=== PATIENT | female | born 1985 | race African-American/Black ===

== ENCOUNTER 2016-09-26 06:51 | Emergency (ER) | payer OTHER ==
[~2016-09-26] VITALS: Ht 172.7 cm; Wt 95.5 kg
[~2016-09-26 06:51] MED LIST: CEPHALEXIN500 M1 PO; MOTRIN 600600 MG/TAB PO; PERCOCET 325 MG1 TA2 PO; PRENATAL1 TA1 PO; RT ADVAIR HFA 2312 G IH; SINGULAIR 110 MG/TAB PO; XOPENEX HF0.045 MG/A IH; ZYRTEC 10MG10 MG PO
[2016-09-26] MEDS ORDERED: AMOXICILLIN 50500 MG PO (06:56)
[2016-09-26] MEDS ORDERED: SINGULAIR 110 MG/TAB PO (06:56)
[2016-09-26 07:24] LABS: BASO % 0.3 % (0.0-2.0); EOS # 0.1 (0.0-0.7); EOS % 0.6 % (0-4.0); GRAN # 9.3 (1.4-6.5); GRAN % 79.8 % (42.2-75.2); HEMATOCRIT 38.3 % (37.0-47.0); HEMOGLOBIN 12.8 g/dl (12.5-16.0); LYMPH # 1.1 (1.2-3.4); LYMPH % 9.1 % (20.0-51.0); MEAN CELL VOLUME 82 fl (80.0-100.0); MEAN CORPUSCULAR HEMOGLOBIN 27 pg (27.0-31.0); MEAN CORPUSCULAR HGB CONC 33 g/dl (33.0-37.0); MEAN PLATELET VOLUME 9.3 fl (7.4-10.4); MONO # 1.2 (0.1-0.6); MONO % 9.9 % (1.7-9.3); PLATELET COUNT 202 K/mm3 (130-400); REDCELL DISTRIBUTION WIDTH-CV 12.1 % (11.5-14.5); WHITE BLOOD COUNT 11.7 K/mm3 (4.8-10.8)
[2016-09-26 07:31] LABS: ADJUSTED CALCIUM 9.1 mg/dL (8.4-10.2); ALBUMIN 4.2 gm/dL (3.5-5.0); BILIRUBIN,TOTAL 0.7 mg/dL (0.0-1.0); CALCIUM 9.3 mg/dL (8.4-10.2); CREATININE, serum 1.06 mg/dL (0.52-1.25); POTASSIUM 3.6 mmol/L (3.4-5.0); TOTAL PROTEIN 7.4 gm/dL (6.4-8.2)
[2016-09-26 07:33] LABS: PH 6 (5-8); SQUAMOUS EPITHELIAL None Seen /hpf; URINE APPEARANCE Cloudy; URINE BACTERIA Moderate /hpf; URINE BILIRUBIN Negative (NEGATIVE); URINE BLOOD 2+ (NEGATIVE); URINE COLOR Yellow; URINE GLUCOSE Negative (NEGATIVE); URINE KETONE Trace (NEGATIVE); URINE RBC 20-50 /hpf; URINE UROBILINOGEN Negative (NEGATIVE); URINE WBC >50 /hpf
[2016-09-26] MEDS ORDERED: CIPRO 500MG TA500 MG PO (08:01)
[2016-09-26] MEDS ORDERED: NORCO 325 MG-7.1 TAB PO (08:02)
[2016-09-26] MEDS ORDERED: ZOFRAN ODT4 MG PO (08:02)
[2016-09-26 08:32] VITALS: BP 118/76; PULSE 89; TEMP 98.7
== END 2016-09-26 08:35 | disposition home or self-care (01) ==
LOC: COL.ER 06:51
PROVIDERS: Nurse Practitioner
DX: N12 Tubulo-interstitial nephritis, not specified as acute or chronic (principal); J45.909 Unspecified asthma, uncomplicated
CPT/HCPCS: J0696; J1885; J2405; J7030

== ENCOUNTER 2018-06-05 14:05 | Outpatient (CLI) | payer OTHER ==
[~2018-06-05] VITALS: Ht 170.2 cm; Wt 98.0 kg
[~2018-06-05 14:05] MED LIST changes: +AMOXICILLIN 50500 MG PO; +AMOXICILLIN875 MG PO; +CIPRO 500MG TA500 MG PO; +CITRANATAL HARM1 SG1; +NORCO 325 MG-7.1 TAB PO; +PREDNISONE20 MG PO; +ZOFRAN ODT4 MG PO
--- NOTE | 2018-06-05 14:10 | NUR ---
1410: Patient ambulatory onto unit for 2nd betamethasone injection and NST. EFMs on, VS taken. NST assessment completed. Patient reports good movement, denies contractions, vaginal bleeding, or leaking of fluid. Betamethasone given per orders, see eMAR. 1440: Discharge instructions given, return precautions reviewed. Patient has Madelaine injection tomorrow at [facility]. Denies questions/concerns. Ambulatory off of unit at this time with family.
[2018-06-05] MEDS ORDERED: ZYRTEC 10MG10 MG PO (14:21)
== END 2018-06-05 14:40 | disposition home or self-care (01) ==
LOC: LDRO 14:05
DX: Z29.8 Encounter for other specified prophylactic measures (principal); Z87.51 Personal history of pre-term labor; Z3A.28 28 weeks gestation of pregnancy
CPT/HCPCS: J0702

== ENCOUNTER 2019-03-15 08:35 | Emergency (ER) | payer OTHER ==
[~2019-03-15] VITALS: Ht 172.7 cm; Wt 81.8 kg
[~2019-03-15 08:35] MED LIST changes: +IBU600 MG PO
[2019-03-15 08:46] VITALS: BP 123/75
[2019-03-15] MEDS ORDERED: OMNICEF 300MG300 MG PO (09:01)
[2019-03-15 10:09] VITALS: PULSE 74; TEMP 97.9
== END 2019-03-15 09:20 | disposition home or self-care (01) ==
LOC: COL.ER 08:35
DX: J03.90 Acute tonsillitis, unspecified (principal); Z79.51 Long term (current) use of inhaled steroids
CPT/HCPCS: J8540

== ENCOUNTER → 2020-01-16 | Outpatient (CLI) | payer OTHER ==
[~2020-01-16] MED LIST changes: +OMNICEF 300MG300 MG PO
== END ==
LOC: COL.RAD 01-06 14:15
DX: Z01.89 Encounter for other specified special examinations (principal); N92.6 Irregular menstruation, unspecified